=== PATIENT | male | born 1965 | race Caucasian/White ===

== ENCOUNTER 2017-11-28 09:53 | Emergency (ER) | payer SELFPAY ==
[~2017-11-28] VITALS: Ht 177.8 cm; Wt 84.0 kg
[2017-11-28 09:56] VITALS: BP 181/103; PULSE 65; RESP 20; TEMP 97.4; O2SAT 99
--- NOTE | 2017-11-28 10:42 | PD ---
HPI Chief Complaint: Dizziness Time Seen by Provider: 10:21 Travel History International Travel<30 days: No Contact w/Intl Traveler<30days: No Traveled to known affect area: No History of Present Illness HPI Patient has a history of acute onset room spinning sensation that occurred while he was at work. Patient denies having any lateralizing weakness or any type of a headache, chest pain, abdominal pain, back pain, no nausea, vomiting, or diarrhea. Patient denied any alleviating factors however it was aggravated by any head movement. Patient denies having any allergies to medications Patient states his only medical history is hypertension however he is noncompliant and does not take any medications currently for high blood pressure. [facility] Social History Alcohol Use: Yes Tobacco Use: Yes Substance Use: No Allergies-Medications (Allergen,Severity, Reaction): Coded Allergies: No Known Allergies (Verified Allergy, Unknown, 11/28/17) Reported Meds & Prescriptions Reported Meds & Active Scripts Active No Active Prescriptions or Reported Medications Review of Systems Except as stated in HPI: all other systems reviewed are Neg General / Constitutional: No: Fever Eyes: No: Visual changes HENT: Positive: Vertigo Cardiovascular: No: Chest Pain or Discomfort Respiratory: No: Shortness of Breath Gastrointestinal: No: Abdominal Pain Genitourinary: No: Dysuria Musculoskeletal: No: Pain Skin: No Rash Neurologic: No: Weakness Psychiatric: No: Depression Endocrine: No: Polydipsia Hematologic/Lymphatic: No: Easy Bruising Physical Exam Narrative GENERAL: SKIN: Warm and dry. HEAD: Atraumatic. Normocephalic. EYES: Pupils equal and round. No scleral icterus. No injection or drainage. Patient was noted to have a fatigable lateral nystagmus. No evidence of any vertical or rotary components. ENT: No nasal bleeding or discharge. Mucous membranes pink and moist. Patient has cerumen impaction on the right EAC and partial cerumen impaction on the left EAC NECK: Trachea midline. No JVD. CARDIOVASCULAR: Regular rate and rhythm. RESPIRATORY: No accessory muscle use. Clear to auscultation. Breath sounds equal bilaterally. GASTROINTESTINAL: Abdomen soft, non-tender, nondistended. MUSCULOSKELETAL: Extremities without clubbing, cyanosis, or edema. No obvious deformities. NEUROLOGICAL: Awake and alert. No obvious cranial nerve deficits. Motor grossly within normal limits. Five out of 5 muscle strength in the arms and legs. Normal speech. PSYCHIATRIC: Appropriate mood and affect; insight and judgment normal. Data Data Last Documented VS Vital Signs Date Time Temp Pulse Resp B/P (MAP) Pulse Ox O2 Delivery O2 Flow Rate FiO2 11/28/17 11:26 84 18 172/98 (122) 100 Room Air 11/28/17 10:57 2.00 11/28/17 09:56 97.4 Orders Orders Electrocardiogram (11/28/17 ) Complete Blood Count With Diff (11/28/17 10:22) Comprehensive Metabolic Panel (11/28/17 10:22) Ckmb (Isoenzyme) Profile (11/28/17 10:22) Troponin I (11/28/17 10:22) B-Type Natriuretic Peptide (11/28/17 10:22) Prothrombin Time / Inr (Pt) (11/28/17 10:22) Act Partial Throm Time (Ptt) (11/28/17 10:22) Lipase (11/28/17 10:22) Thyroid Stimulating Hormone (11/28/17 10:22) Chest, Single Ap (11/28/17 10:22) Ct Brain W/O Iv Contrast(Rout) (11/28/17 10:22) Hydralazine Inj (Apresoline Inj) (11/28/17 10:45) Ear Irrigation (11/28/17 10:43) CKMB (11/28/17 10:30) CKMB% (11/28/17 10:30) Labs Laboratory Tests Test 11/28/17 10:30 White Blood Count 12.5 TH/MM3 Red Blood Count 5.07 MIL/MM3 Hemoglobin 16.0 GM/DL Hematocrit 45.8 % Mean Corpuscular Volume 90.4 FL Mean Corpuscular Hemoglobin 31.5 PG Mean Corpuscular Hemoglobin Concent 34.9 % Red Cell Distribution Width 13.4 % Platelet Count 311 TH/MM3 Mean Platelet Volume 8.0 FL Neutrophils (%) (Auto) 79.4 % Lymphocytes (%) (Auto) 11.9 % Monocytes (%) (Auto) 5.8 % Eosinophils (%) (Auto) 2.1 % Basophils (%) (Auto) 0.8 % Neutrophils # (Auto) 9.9 TH/MM3 Lymphocytes # (Auto) 1.5 TH/MM3 Monocytes # (Auto) 0.7 TH/MM3 Eosinophils # (Auto) 0.3 TH/MM3 Basophils # (Auto) 0.1 TH/MM3 CBC Comment DIFF FINAL Differential Comment Prothrombin Time 10.3 SEC Prothromb Time International Ratio 1.0 RATIO Activated Partial Thromboplast Time 23.6 SEC Blood Urea Nitrogen 9 MG/DL Creatinine 0.93 MG/DL Random Glucose 122 MG/DL Total Protein 7.3 GM/DL Albumin 3.5 GM/DL Calcium Level 8.8 MG/DL Alkaline Phosphatase 63 U/L Aspartate Amino Transf (AST/SGOT) 11 U/L Alanine Aminotransferase (ALT/SGPT) 17 U/L Total Bilirubin 1.1 MG/DL Sodium Level 138 MEQ/L Potassium Level 3.7 MEQ/L Chloride Level 104 MEQ/L Carbon Dioxide Level 25.0 MEQ/L Anion Gap 9 MEQ/L Estimat Glomerular Filtration Rate 86 ML/MIN Total Creatine Kinase 108 U/L Troponin I LESS THAN 0.02 NG/ML B-Type Natriuretic Peptide 7 PG/ML Lipase 96 U/L Thyroid Stimulating Hormone 3rd Gen 0.872 uIU/ML MDM Medical Decision Making Medical Screen Exam Complete: Yes Emergency Medical Condition: Yes Medical Record Reviewed: Yes Differential Diagnosis Intracranial hemorrhage versus ischemic CVA versus hypertensive urgency versus vertigo versus cerumen impaction induced vertigo Narrative Course Patient's CT shows a suspected intraventricular arachnoid cyst measuring 3.5 x 3.7 cm across on the right. There is no edema, hemorrhage or mass-effect. Diagnosis Primary Impression: Vertigo secondary to cerumen impaction Additional Impressions: Accelerated hypertension Incidental intraventricular arachnoid cyst Referrals: Chance Paul MD FOR ARACHNOID CYST INSIDE OF RIGHT VENTRICLE Patient Instructions: General Instructions, Vertigo (ED) Scripts Meclizine (Meclizine) 25 Mg Tab 25 MG PO TID Y for VERTIGO, #21 TAB 0 Refills Prov: Bucky Martinez MD 11/28/17 Disposition: 01 DISCHARGE HOME Condition: Stable Bucky Martinez MD Nov 28, 2017 10:42
[2017-11-28] MEDS ORDERED: hydrALAZINE HCL 20 MG/ML VIAL IV PUSH ONE (10:45)
[2017-11-28 10:57] VITALS: BP 163/84; PULSE 66; RESP 18; O2SAT 97
--- NOTE | 2017-11-28 11:02 | RADRPT ---
EXAM DATE/TIME: 11/28/2017 10:36 [facility] COMPARISON: No previous studies available for comparison. INDICATIONS : Syncope. Patient states dizziness with nausea. MEDICAL HISTORY : None. SURGICAL HISTORY : None. ENCOUNTER: Initial ACUITY: 1 day PAIN SCORE: 0/10 LOCATION: Bilateral chest FINDINGS: A single view of the chest demonstrates the lungs to be symmetrically aerated without evidence of mas s, infiltrate or effusion. The cardiomediastinal contours are unremarkable. Osseous structures are intact. CONCLUSION: No acute disease. Rogelio Moise Jr., MD on November 28, 2017 at 11:00 Board Certified Radiologist. This report was verified electronically.
[2017-11-28 11:05] LABS: AUTOMATED NEUTROPHIL # 9.9 TH/MM3 (1.8-7.7); BASOPHIL # 0.1 TH/MM3 (0-0.2); BASOPHIL % 0.8 % (0.0-2.0); EOSINOPHIL # 0.3 TH/MM3 (0-0.4); EOSINOPHIL % 2.1 % (0.0-4.0); HEMATOCRIT 45.8 % (39.0-51.0); LYMPH % 11.9 % (9.0-44.0); LYMPHOCYTE # 1.5 TH/MM3 (1.0-4.8); MEAN CELL VOLUME 90.4 FL (80.0-100.0); MEAN CORPUSCULAR HEMOGLOBIN 31.5 PG (27.0-34.0); MEAN CORPUSCULAR HGB CONC 34.9 % (32.0-36.0); MONO % 5.8 % (0.0-8.0); MONOCYTE # 0.7 TH/MM3 (0-0.9); NEUT % 79.4 % (16.0-70.0); PLATELET COUNT 311 TH/MM3 (150-450); RED BLOOD COUNT 5.07 MIL/MM3 (4.50-5.90); RED CELL DISTRIBUTION WIDTH 13.4 % (11.6-17.2); WHITE BLOOD COUNT 12.5 TH/MM3 (4.0-11.0)
[2017-11-28 11:09] LABS: PROTHROMBIN TIME - PATIENT 10.3 SEC (9.8-11.6)
[2017-11-28 11:20] LABS: ALBUMIN 3.5 GM/DL (3.4-5.0); AST (GOT) 11 U/L (15-37); BLOOD UREA NITROGEN 9 MG/DL (7-18); CALCIUM 8.8 MG/DL (8.5-10.1); CHLORIDE 104 MEQ/L (98-107); CREATININE 0.93 MG/DL (0.60-1.30); GLOMERULAR FILTRATION RATE 86 ML/MIN (>89); GLUCOSE,RANDOM 122 MG/DL (74-106); SODIUM (NA) 138 MEQ/L (136-145)
--- NOTE | 2017-11-28 11:25 | RADRPT ---
EXAM DATE/TIME: 11/28/2017 11:16 [facility] COMPARISON: No previous studies available for comparison. INDICATIONS : Dizziness and nausea since this morning. RADIATION DOSE: 41.28 CTDIvol (mGy) MEDICAL HISTORY : None SURGICAL HISTORY : None. ENCOUNTER: Initial ACUITY: 1 day PAIN SCALE: 0/10 LOCATION: Bilateral cranial TECHNIQUE: Multiple contiguous axial images were obtained of the head. Using automated exposure control and adj ustment of the mA and/or kV according to patient size, radiation dose was kept as low as reasonably a chievable to obtain optimal diagnostic quality images. DICOM format image data is available electro nically for review and comparison. FINDINGS: CEREBRUM: There is a fluid density area of distention of the right lateral ventricle. No evidence of midline s hift, mass lesion, hemorrhage or acute infarction. No extra-axial fluid collections are seen. POSTERIOR FOSSA: The cerebellum and brainstem are intact. The 4th ventricle is midline. The cerebellopontine angle i s unremarkable. EXTRACRANIAL: The visualized portion of the orbits is intact. SKULL: The calvaria is intact. No evidence of skull fracture. CONCLUSION: Suspected intraventricular arachnoid cyst measuring 3.5 x 3.7 cm across on the right. I don't see any surrounding edema, hemorrhage, mass or mass effect. Russell Moncada MD on November 28, 2017 at 11:21 Board Certified Radiologist. This report was verified electronically.
[2017-11-28 11:26] VITALS: BP 172/98; O2SAT 100
[2017-11-28 11:32] LABS: ALKALINE PHOSPHATASE 63 U/L (45-117); ALT (GPT) 17 U/L (12-78); TOTAL BILIRUBIN ADULT 1.1 MG/DL (0.2-1.0); TOTAL PROTEIN 7.3 GM/DL (6.4-8.2); TROPONIN I LESS THAN 0.02 NG/ML (0.02-0.05)
[2017-11-28] MEDS ORDERED: MECL-62 PO (11:45)
[2017-11-28] MEDS ORDERED: AMLO10TA2 PO (13:12)
--- NOTE | 2017-11-29 13:23 | EKG ---
Date Performed: 11/28/2017 Time Performed: 10:16:32 PTAGE: 51 years EKG: Sinus rhythm MARKED LEFT AXIS DEVIATION RIGHT BUNDLE BRANCH BLOCK VOLTAGE CRITERIA FOR LVH ABNORMAL ECG NO PREVIOUS TRACING DOCTOR: Russell Fisher Interpretating Date/Time 11/29/2017 13:19:46
== END 2017-11-28 13:29 | disposition home or self-care (01) ==
LOC: NEPC 09:53
DX: R42 Dizziness and giddiness (principal); H61.23 Impacted cerumen, bilateral; I10 Essential (primary) hypertension; G93.0 Cerebral cysts; I45.10 Unspecified right bundle-branch block; R94.31 Abnormal electrocardiogram [ECG] [EKG]; Z72.0 Tobacco use
CPT/HCPCS: 69210; 70450; 71045; 80053; 82550; 82552; 83690; 83880; 84443; 84484; 85025; 85610; 85730; 93005; 96374; 99285; J0360